=== PATIENT | female | born 1985 | race Caucasian/White ===

== ENCOUNTER 2016-09-23 17:15 | Emergency (ER) | payer OTHER ==
[~2016-09-23] VITALS: Ht 162.6 cm; Wt 76.0 kg
[2016-09-23 17:19] VITALS: Ht 162.6 cm; Wt 76.0 kg
--- OUTSIDE RECORDS SUMMARY | 2016-09-23 17:27 | XMS REPORT | Continuity of Care Document ---
Author Author Malka Ace Address Unknown Phone Unavailable Care Team Providers Care Net Development Manager Name Role Phone [employer] Unavailable Unavailable Problems Medications Allergies, Adverse Reactions, Alerts Immunizations Results Vital Signs Encounters Location Location Details Encounter Type Encounter Number Reason For Visit Attending Provider ADM Date DC Date Status Source [facility] REF [id number] Unknown Provider 06/06/2013 Active [facility] Procedures Plan of Care Social History Assessment and Plan Family History Value Date Source Advance Directives Order Name Results Value Date Source
--- OUTSIDE RECORDS SUMMARY | 2016-09-23 17:27 | XMS REPORT | Continuity of Care Document ---
Author Author [facility] Organization [facility] Address Unknown Phone Unavailable Allergies Medications Problems Date Dx Coded Attending Type Code Diagnosis Diagnosed By 04/30/2013 Luda Laguna MD 599.0 URIN TRACT INFECTION NOS 04/30/2013 Luda Laguna MD 646.31 RECURRENT LOSS, DELIVERED, W OR W/OUT AP 04/30/2013 Luda Laguna MD 646.61 INFECTION-DELIVERED 04/30/2013 Luda Laguna MD 655.81 ABNORM NEC-DELIVER 04/30/2013 Luda Laguna MD 656.51 POOR GROWTH-DELIV 04/30/2013 Luda Laguna MD 664.81 OB PERINEAL TRAU NEC-DEL 04/30/2013 Luda Laguna MD V27.0 DELIVER-SINGLE LIVEBORN Procedures Code Description Performed By Performed On 73.01 INDUCT LABOR-RUPT MEMB Luda Laguna MD 04/30/2013 73.4 MEDICAL INDUCTION LABOR 04/30/2013 73.59 MANUAL ASSIST DELIV NEC 04/30/2013 Results Test Result Range URINALYSIS WITH MICROSCOPIC - 04/23/13 19:45 UA LEUKOCYTE ESTERASE DIPSTICK NEGATIVE NEGATIVE UA NITRITE DIPSTICK POSITIVE NEGATIVE UA PROTEIN DIPSTICK TRACE NEGATIVE UA GLUCOSE DIPSTICK NEGATIVE NEGATIVE UA KETONE DIPSTICK TRACE NEGATIVE UA UROBILINOGEN DIPSTICK NORMAL NORMAL UA BILIRUBIN DIPSTICK NEGATIVE NEGATIVE UA BLOOD DIPSTICK NEGATIVE NEGATIVE UA BACTERIA 5+ NEGATIVE UA CALCIUM OXALATE CRYSTALS PRESENT NEGATIVE UA EPITHELIAL CELLS 1+ epi/hpf 0 - 1+ UA RBC 0-3 rbc/hpf 0 - 3 UA VOLUME FOR EXAM 12.0 mL (12mL STD) UA WBC 2-5 wbc/hpf 0 - 5 UA SPECIFIC GRAVITY 1.028 1.015-1.025 UR PH 5.0 5.0-7.0 CBC - 04/30/13 06:48 MEAN CELL HGB 29.1 pg 27.0-33.0 MEAN CELL HGB CONCENTRATION 33.3 g/dL 32.0-37.0 MEAN CELL VOLUME 87.2 fl 80.0-100.0 RED BLOOD CELL 3.99 m/cumm 4.00-6.00 RED CELL DISTRIBUTION WIDTH 12.6 % 11.0- 15.6 WHITE BLOOD CELL 15.2 k/cumm 5.0-10.0 HEMOGLOBIN 11.6 gm/dL 12.0-16.0 HEMATOCRIT 34.8 % 37.0-47.0 PLATELET COUNT 278 k/cumm 150-400 CORD VENOUS BLOOD GAS - 04/30/13 15:10 VENOUS CORD BLOOD BASE EXCESS -1.9 meq/L -5.8-0.7 COMMENT VENOUS VENOUS CORD BLOOD HCO3 22.8 meq/L 17.4- 25.4 VENOUS CORD BLOOD PCO2 39 mm Hg 28-57 VENOUS CORD BLOOD PH 7.39 7.23-7.46 VENOUS CORD BLOOD PO2 25 mm Hg 15-42 VENOUS CORD BLOOD O2 SAT 58 % 14-75 CORD ARTERIAL BLOOD GAS - 04/30/13 15:10 ARTERIAL CORD BLD BASE EXCESS -3.0 meq/L -7.6-1.3 COMMENT ARTERIAL ARTERIAL CORD BICARBONATE 23.4 meq/L 16.0 -27.1 ARTERIAL CORD BLOOD PCO2 47 mm Hg 32-69 ARTERIAL CORD BLOOD PH 7.32 7.14-7.40 ARTERIAL CORD BLOOD PO2 17.5 mm Hg 8-33 ARTERIAL CORD BLOOD O2 SAT 34 % 5-59 HEMOGLOBIN - 05/01/13 07:50 MEAN CELL VOLUME 87.1 fl 80.0-100.0 HEMOGLOBIN 10.7 gm/dL 12.0-16.0 Encounters ACCT No. Visit Date/Time Discharge Status Pt. Type Provider Facility Loc./Unit Complaint [id number] 04/30/2013 05:35:00 2012 22:15:00 DIS Inpatient Jase DENNISON, [facility] W.3WH [id number] 04/23/2013 17:31:00 2012 10:10:00 DIS Outpatient Jase DENNISON, [facility] W.2WE
--- NOTE | 2016-09-23 17:37 | NUR ---
PROVIDER Joan CROWELL TAX MANAGER CPA IN TO SEE PATIENT.
--- NOTE | 2016-09-23 17:43 | ERPDOC ---
Departure Disposition Decision Date: Sep 23, 2016 Disposition Decision Time: 18:38 (ANJALI CROWELL APRN) Disposition: 01 DISCHARGED HOME, SELF-CARE Impression Impression (ANJALI CROWELL APRN) Impression: Primary Impression: Fx sacrum/coccyx-closed Encounter type: initial encounter Qualified Codes: S32.10XA - Unspecified fracture of sacrum, initial encounter for closed fracture; S32.2XXA - Fracture of coccyx, initial encounter for closed fracture Severity: Moderate (ANJALI CROWELL APRN) Condition: Stable Seen By: Mid-level only (ANJALI CROWELL APRN) Patient Instructions: Coccyx Injury (ED) Problems/Meds/Labs Reviewed?: Yes Medications reviewed and manag: Yes (ANJALI CROWELL APRN) Additional Instructions: Avoid putting pressure on the tailbone. Naproxen and [place] as needed for pain. This may take up to 4-6 weeks before this is completely healed. I recommend that you try some stool softeners as well to prevent constipation and pain with having a BM. Follow up care ordered?: Yes Mental Status: Alert, Oriented (ANJALI CROWELL APRN) Scripts Hydrocodone/Acetaminophen ([place] 5-325 Tablet) 5-325 Tablet 1 TAB PO Q6H Y for PAIN, #12 TAB 0 Refills Prov: ANJALI CROWELL APRN 09/23/16 Naproxen (Naprosyn) 500 Mg Tablet 1 TAB PO BID, #20 TAB 0 Refills Prov: ANJALI CROWELL APRN 09/23/16 HPI - Fall/Injury General Chief Complaint: Fall Stated Complaint: FALL,PAINFUL TAILBONE Time Seen by Provider: 17:31 Source: patient Exam Limitations: no limitations (ANJALI CROWELL APRN) Time Seen by Provider: 17:31 (NATALIA JOHNSON MD) HPI - Fall/Injury Initial Comments She was at home earlier today and fell onto her bottom. She has had tailbone pain since it happened. She did not take anything prior to coming to ER. She denies any history of tailbone injury. Occurred At: home Onset: Rapid Duration: 1 hr Severity: moderate Injuries/Pain Location: other (coccyx) Context: slipped Loss of Consciousness: no loss of consciousness Associated Symptoms: DENIES: abdominal pain, chest pain, confusion, dizziness, headache, lightheadedness, muscle spasms, nausea/vomiting, neck pain, ringing in ears, seizures, shortness of breath, slurred speech, trouble walking, vision changes Hx of Similar Symptoms: No (NOTERRY,ANJALI N MARKETING SECRETARY) Allergies: Coded Allergies: metoclopramide (Verified Allergy, Unknown, 09/23/16) Past History Past Medical History Pt denies signifigant PMH (NOTERRY,ANJALI N MARKETING SECRETARY) Surgical History Denies Surgeries (NOTERRY,ANJALI N MARKETING SECRETARY) Family History Family History: Negative (NOTERRY,ANJALI N MARKETING SECRETARY) Social History Smoking Status: Never smoker Substance Use Type: does not use Alcohol Intake: none (NOTERRY,ANJALI N MARKETING SECRETARY) Review of Systems General: DENIES: dysuria, frequency, incontinence, urgency (NOTERRY,ANJALI N MARKETING SECRETARY) Musculoskeletal General: pain (in coccyx), tenderness (over coccyx), DENIES: joint pain, joint swelling, weakness (NOTERRY,ANJALI N MARKETING SECRETARY) Integumentary Skin: DENIES: color change, itching, lesion, rash (NOTERRY,ANJALI N MARKETING SECRETARY) Neurological General: DENIES: numbness, tingling, weakness (NOTERRY,ANJALI N MARKETING SECRETARY) Physical Exam General General Nourishment: well nourished, well developed, appears stated age, no acute distress, adult General Body Habitus: well groomed (NOTERRY,ANJALI N MARKETING SECRETARY) Vitals and Pain First Documented Vital Signs Date Time Temp Pulse Resp B/P Pulse Ox O2 Delivery O2 Flow Rate FiO2 09/23/16 17:19 98.6 90 16 109/66 98 Room Air (NATALIA JOHNSON MD) Vitals and Pain Weight: Kilograms: 76.000 Height (feet): 5 Height (inches): 4.00 Triage Pain Scale: (ANJALI CROWELL N MARKETING SECRETARY) RN VS reviewed by Provider: Yes (ANJALI CROWELL N MARKETING SECRETARY) Normal Exams: Chest/Resp: Clear all jiménez, with good airflow, and symmetry bilaterally CV: Regular rate and rhythm, without murmur or gallop, Pulses 2+ all extremities, capillary refill, <2 seconds all ext., no pedal edema noted Abdomen: Bowel sounds positive, soft, non-tender, non-distended, no hepatosplenomegaly, masses or bruits noted Musculoskeletal: No tenderness, or deformity noted, good range of motion, all extremities Integumentary: No rashes, hives, or bruising noted Neurologic: Patient is alert, and oriented Psychiatric: Patient exhibits, appropriate attention, emotion and affect (ANJALI CROWELL APRN) Musculoskeletal (brief) Musculoskeletal Brief: FOUND: tenderness (Moderate TTP along the coccyx), NOT FOUND: deformity, loss of motion (ANJALI CROWELL APRN) Differential Diagnoses Considering: Contusion, Dislocation, Fracture (ANJALI CROWELL APRN) Progress Results/Orders Orders Procedure Category Date Status Time LAB 09/23/16 Complete Qualitative, Urine 17:38 Sacrum & Coccyx RAD 09/23/16 Taken (NATALIA JOHNSON MD) Lab Results Laboratory Tests Test 09/23/16 17:50 Urine Test Negative (NATALIA JOHNSON MD) Progress Progress XRay does show a coccyx fracture. Did talk with her about off loading weight while she is sitting or laying down. Will send her home today with some [place] for pain. Have her start a stool softener as well. Follow up with her PCP if any further issues/concerns. (ANJALI CROWELL APRN) Progress Patient's history and exam discussed with MARKETING SECRETARY. Agree with care given in ER. (NATALIA JOHNSON MD) Xray Xray : Reason for Exam: coccyx pain Xray: Sacrum/Coccyx Interpretation: Abnormal (fracture of coccyx) (ANJALI CROWELL APRN) ANJALI CROWELL APRN Sep 23, 2016 17:43 NATALIA JOHNSON MD Sep 23, 2016 18:28 NATALIA JOHNSON MD Sep 23, 2016 18:28
[2016-09-23] MEDS ORDERED: VENL150T7 PO (17:50)
[2016-09-23] MEDS ORDERED: BUPR150T8 PO (17:50)
[2016-09-23] MEDS ORDERED: ALPR0.5T8 PO (17:50)
[2016-09-23] MEDS ORDERED: SUMA100T PO (17:50)
--- NOTE | 2016-09-23 17:50 | NUR ---
ELIMINATION PATIENT UP TO BR TO VOID.
--- NOTE | 2016-09-23 18:24 | NUR ---
TO XRAY PER CART.
--- OUTSIDE RECORDS SUMMARY | 2016-09-23 18:27 | XMS REPORT | Continuity of Care Document ---
Author Author Malka Ace Address Unknown Phone Unavailable Care Team Providers Care Celery Packer Name Role Phone [employer] Unavailable Unavailable Problems Medications Allergies, Adverse Reactions, Alerts Immunizations Results Vital Signs Encounters Location Location Details Encounter Type Encounter Number Reason For Visit Attending Provider ADM Date DC Date Status Source [facility] REF [id number] Unknown Provider 06/06/2013 Active [facility] and [facility] Procedures Plan of Care Social History Assessment and Plan Family History Value Date Source Advance Directives Order Name Results Value Date Source
--- OUTSIDE RECORDS SUMMARY | 2016-09-23 18:27 | XMS REPORT | Continuity of Care Document ---
Author Author [facility] Organization [facility] Address Unknown Phone Unavailable Allergies Medications [...] Status Pt. Type Provider Facility Loc./Unit Complaint [id number] 04/30/2013 05:35:00 2012 22:15:00 DIS Inpatient Jase DENNISON, [facility] W.3WH [id number] 04/23/2013 17:31:00 2012 10:10:00 DIS Outpatient Jase DENNISON, [facility] W.2WE
--- NOTE | 2016-09-23 18:30 | NUR ---
BACK FROM XRAY
[2016-09-23] MEDS ORDERED: NAPR500T PO (18:39)
[2016-09-23] MEDS ORDERED: HYDR-4246 PO (18:39)
[2016-09-23 18:58] VITALS: BP 104/56; PULSE 92; RESP 18; TEMP 98.6; O2SAT 99
--- NOTE | 2016-09-24 08:20 | DI ---
Indication: ITS.REASON: fall, coccyx pain PROCEDURE: SACRUM COCCYX: Encounter: Initial Comparison: None Findings/ impression: Subtle cortical offset seen in the anterior mid to distal coccyx on the lateral view only appears to represent a minimally displaced fracture. CT could be performed for further evaluation as clinically indicated. .
== END 2016-09-23 18:58 | disposition home or self-care (01) ==
LOC: ED 17:15
DX: S32.2XXA Fracture of coccyx, initial encounter for closed fracture (principal); S32.10XA Unspecified fracture of sacrum, initial encounter for closed fracture; W01.0XXA Fall on same level from slipping, tripping and stumbling without subsequent striking against object, initial encounter; Y93.9 Activity, unspecified; Y92.009 Unspecified place in unspecified non-institutional (private) residence as the place of occurrence of the external cause; Y99.8 Other external cause status
CPT/HCPCS: 81025